=== PATIENT | male | born 1980 | race Caucasian/White ===

== ENCOUNTER → 2019-08-12 14:28 | Outpatient (CLI) | payer SELFPAY ==
--- NOTE | 2019-08-12 14:42 | CT_ITS ---
STUDY: CT TEMPORAL BONES WITHOUT CONTRAST - ATTN: I.A.C. S REASON FOR EXAM: Male, 39 years old. Left cholesteatoma. RADIATION DOSAGE (If Supplied By Facility): CTDIvol = ( ) mGy, DLP = ( ) mGycm TECHNIQUE: The patient was scanned in a multi detector CT scanner. Transaxial imaging was performed without the administration of intravenous contrast material. Sagittal and coronal images were reconstructed. Individualized dose optimization techniques were used for this CT. COMPARISON: None. FINDINGS: RIGHT TEMPORAL BONE Incidental note of mild mucoperiosteal thickening in the right sphenoid sinus. Unremarkable right mastoid sinus. Normal right internal auditory canal. Normal visualized ossicles and tympanic cavity. Normal right cochlea and semicircular canals. Normal vestibular aqueduct. Normal right petrous carotid artery. Normal right jugular fossa. Normal right mastoid air cells. Normal right petrous apex. LEFT TEMPORAL BONE Incidental note of trace mucoperiosteal thickening in the left sphenoid sinus. There is opacification of some lateral and inferior air cells of the left mastoid sinus. There is minor accumulation of cerumen along the superior margin of the deep external auditory canal. Normal left internal auditory canal. Normal visualized ossicles there is minor soft tissue density along the anterior superior periphery of the tympanic cavity, but no osseous erosive changes. Normal left cochlea and semicircular canals. Normal vestibular aqueduct. Normal left petrous carotid artery. Normal right jugular fossa. Normal left petrous apex. CT/Orb Sella Post Fossa Ear w/o IMPRESSION: 1. Normal unenhanced CT examination of the right temporal bone (I.A.C.''s). 2. Incidental note of mild mucoperiosteal thickening in the right sphenoid sinus. There is trace mucoperiosteal thickening on the left. 3. There is opacification of some inferior and lateral air cells of the left mastoid sinus. 4. Minor accumulation of cerumen along the superior margin of the deep left external auditory canal. There is also minor soft tissue thickening along the anterior superior periphery of the left tympanic cavity, but no associated mass or erosive changes. Electronically Signed: Chemo Thakkar MD at 19:45 EST , Service support ,
== END ==
PROVIDERS: Referring Provider Otolaryngology; Visit Provider Otolaryngology
DX: H71.92 Unspecified cholesteatoma, left ear (principal)
CPT/HCPCS: 70480